=== PATIENT | female | born 1985 | race Caucasian/White ===

== ENCOUNTER 2021-03-09 14:03 | Inpatient (IN) ==
[2021-03-09] MEDS ORDERED: Penicillin G Potassium IV 5,000,000 UNITS in NS 0.9% 100 ml BAG 100 ML IVPB ONE (14:42)
[2021-03-09] MEDS ORDERED: Buffered Lidocaine 1% SYRIN 1 ml INTRADERM ONE (14:42)
[2021-03-09] MEDS ORDERED: Lactated Ringers 1000 ml BAG 1,000 ML IV SCH ×2 (15:00)
[2021-03-09] MEDS ORDERED: Oxytocin in LR 20 UNITS/1,000 ML BAG IVPB SCH (15:00)
[2021-03-09 16:58] LABS: Hematocrit 33 % (35-47); Mean Corpuscular HGB Conc 34 g/dL (31-36); Mean Corpuscular Hemoglobin 28 pg (27-31); Mean Corpuscular Volume 84 fL (80-97); Mean Platelet Volume 10.5 fL (7.4-10.4); Platelet Count 124 10^3/uL (150-450); Red Blood Count 3.92 10^6 /uL (3.70-4.87); Red Cell Distribution Width 30 % (10-15); White Blood Count 8.2 10^3/uL (3.5-10.8)
[2021-03-09 17:01] LABS: ABS Monocytes 0.7 10^3/ul (0-0.8); ABS Neutrophils 6.3 10^3/ul (1.5-7.7); Eosinophil % 0.6 %; Lymphocyte % 12.7 %
[2021-03-09 17:18] LABS: Urine Benzodiazepine Screen None Detected (None Detect); Urine Cannabinoids Screen None Detected (None Detect); Urine Opiates Screen None Detected (None Detect)
[2021-03-09] MEDS: Penicillin G Potassium IV 3,000,000 UNITS in NS 0.9% 100 ml BAG 100 ML IVPB SCH (19:50)
[2021-03-10] MEDS: Penicillin G Potassium IV 3,000,000 UNITS in NS 0.9% 100 ml BAG 100 ML IVPB SCH ×2 (00:45→04:36)
[2021-03-10] MEDS ORDERED: OBEPIDURAL 250 ML EPIDURAL ONE (01:21)
[2021-03-10] MEDS ORDERED: Lactated Ringers 1000 ml BAG 1,000 ML IV ONE (01:59)
[2021-03-10] MEDS ORDERED: Sodium Citrate/Citric Acid LIQ 15 ML UDC PO PRN (01:59)
[2021-03-10] MEDS ORDERED: Phenylephrine 40 mcg/mL 10mL (400mcg) SYRINGE IV PUSH PRN ×2 (01:59)
[2021-03-10] MEDS ORDERED: OBEPIDURAL 250 ML EPIDURAL SCH (02:00)
[2021-03-10] MEDS ORDERED: Lactated Ringers 1000 ml BAG 1,000 ML IV SCH ×2 (02:00→09:00)
[2021-03-10] MEDS ORDERED: [UNRECOGNIZED DRUG - OTHER] IVPB ONE (02:04)
[2021-03-10 03:08] LABS: Urine Appearance Clear; Urine Bilirubin Negative (Negative); Urine Blood 1+ (Negative); Urine Color Yellow; Urine Glucose Negative (Negative); Urine Ketones Negative (Negative); Urine Nitrite Negative (Negative); Urine Protein Negative (Negative); Urine Specific Gravity 1.016 (1.002-1.030); Urine Urobilinogen Negative (Negative)
[2021-03-10 03:24] LABS: Urine Bacteria Absent (Absent); Urine Red Blood Cell Trace(0-2/hpf) (Absent); Urine Squamous Epithelial Cell Present (Absent); Urine White Blood Cell Absent (Absent)
[2021-03-10] MEDS ORDERED: Dibucaine 1% OINT 28.35 GM TUBE PR PRN (08:28)
[2021-03-10] MEDS ORDERED: Witch Hazel PAD JAR TOPICAL PRN (08:28)
[2021-03-10] MEDS ORDERED: Lidocaine 1% VIAL 10 MG/ML VIAL ONE (10:10)
[2021-03-11 07:28] LABS: ABS Eosinophils 0.1 10^3/ul (0-0.6); ABS Lymphocytes 1.4 10^3/ul (1.0-4.8); ABS Monocytes 0.6 10^3/ul (0-0.8); ABS Neutrophils 6.1 10^3/ul (1.5-7.7); Eosinophil % 1.8 %; Hematocrit 24 % (35-47); Mean Corpuscular HGB Conc 33 g/dL (31-36); Mean Corpuscular Hemoglobin 28 pg (27-31); Mean Corpuscular Volume 86 fL (80-97); Mean Platelet Volume 9.7 fL (7.4-10.4); Platelet Count 87 10^3/uL (150-450); Red Blood Count 2.83 10^6 /uL (3.70-4.87); Red Cell Distribution Width 30 % (10-15); White Blood Count 8.3 10^3/uL (3.5-10.8)
[2021-03-11] MEDS: Polyethylene Glycol 3350 17 GM PACKET PO PRN (12:44)
[2021-03-11] MEDS ORDERED: Iron Sucrose 200 MG in NS 0.9% 100 ml BAG 100 ML IVPB ONE (16:00)
[2021-03-12 08:06] VITALS: BP 106/68
[2021-03-12] MEDS: Polyethylene Glycol 3350 17 GM PACKET PO PRN (08:56)
[2021-03-12] MEDS ORDERED: RHO D Immune Globulin (HUMAN) 300 MCG = 1,500 I.U. INJ IM ONE (10:26)
== END 2021-03-12 11:38 | disposition home or self-care (01) | DRG 807 ==
LOC: MCHOBOUT 14:03 → MCHOB 14:21
PROVIDERS: ADMIT Obstetrics & Gynecology; ATTEND Midwife